=== PATIENT | male | born 1930 | race Caucasian/White ===

== ENCOUNTER 2017-08-10 09:14 | Emergency (ER) | payer OTHER, BC ==
[~2017-08-10] VITALS: Ht 190.5 cm; Wt 87.1 kg
[2017-08-10] MEDS ORDERED: LIPITOR10 MG PO (09:33)
[2017-08-10] MEDS ORDERED: COUMADIN 1MG TAB1 M1 PO ×2 (09:33→09:41)
[2017-08-10] MEDS ORDERED: FLOMAX0.4 MG PO (09:40)
[2017-08-10 11:46] LABS: HEMOGLOBIN 11.2 gm/dL (14.0-18.0); MONOCYTES 6.3 % (1.0-8.0); POLYS 76.8 % (36.0-66.0)
[2017-08-10 11:48] LABS: ABSOLUTE NEUTROPHILS 5.3 thou/uL (1.4-8.2); BASOPHILS 0.2 % (0.0-2.0); EOSINOPHILS 1.9 % (0.0-3.0); HEMATOCRIT 26.6 % (42.0-52.0); LYMPHOCYTES 14.8 % (24.0-44.0); MCH 44.6 pg (26.0-34.0); MCHC 42.1 g/dL (28.0-37.0); MCV 105.8 fL (80.0-100.0); RBC 2.52 mil/uL (4.50-6.00); RDW 14.6 % (10.5-14.5); WBC 6.9 thou/uL (4.0-11.0)
[2017-08-10 11:52] LABS: CALCIUM 9.1 mg/dL (8.5-10.1); CREATININE 1.8 mg/dL (0.7-1.3); POTASSIUM 4.4 mmol/L (3.5-5.1)
[2017-08-10 11:57] LABS: APTT 34.9 Seconds (24.5-32.8); INR 2.7; PROTIME 27.3 Seconds (9.3-11.4)
[2017-08-10 11:58] LABS: ALBUMIN 3.5 g/dL (3.4-5.0); TOTAL BILIRUBIN 0.8 mg/dL (<0.1-1.0); TOTAL PROTEIN 6.4 g/dL (6.4-8.2)
[2017-08-10 12:00] LABS: MANUAL DIFF NO
[2017-08-10 13:22] LABS: ANISOCYTOSIS 1+; MACROCYTES 1+; PLATELET COUNT 39 thou/uL (150-400); PLATELET ESTIMATE DECREASED
[2017-08-10 14:27] VITALS: BP 129/81
== END 2017-08-10 14:30 | disposition short-term general hospital (02) ==
LOC: ER 09:14
PROVIDERS: Physician Assistant
DX: S42.031A Displaced fracture of lateral end of right clavicle, initial encounter for closed fracture (principal); S09.90XA Unspecified injury of head, initial encounter; W18.39XA Other fall on same level, initial encounter; Y93.89 Activity, other specified; Y92.89 Other specified places as the place of occurrence of the external cause; Y99.8 Other external cause status